=== PATIENT | male | born 1960 | race African-American/Black ===

== ENCOUNTER 2021-10-01 21:27 | Inpatient (IN) | payer MEDICARE, OTHER ==
[~2021-10-01] VITALS: Ht 177.8 cm; Wt 120.3 kg
[2021-10-01] MEDS ORDERED: IPRATROPIUM BROMIDE 0.5 MG/2.5 ML NEBU NEB ONE (21:45)
[2021-10-01] MEDS ORDERED: predniSONE 10 MG TABLET PO ONE (21:45)
[2021-10-01] MEDS ORDERED: ALBUTEROL SULFATE 2.5 MG/3 ML NEBU NEB ONE ×2 (21:45→23:00)
[2021-10-01] MEDS ORDERED: IPRATROPIUM BROMIDE 0.5 MG/2.5 ML NEBU ONE (22:01)
[2021-10-01] MEDS ORDERED: ALBUTEROL SULFATE 2.5 MG/3 ML NEBU ONE (22:01)
[2021-10-01 22:04] LABS: HEMATOCRIT 25.7 % (36.7-47.1); MEAN CORPUSCULAR HEMOGLOBIN 29.5 uug (23.8-33.4); MEAN CORPUSCULAR VOLUME 89.9 fL (73.0-96.2); PLATELET COUNT (AUTO) 134 K/uL (152-348)
[2021-10-01 22:12] LABS: CREATININE 1.7 mg/dL (0.6-1.3); POTASSIUM 4.4 mmol/L (3.5-5.1)
[2021-10-01] MEDS ORDERED: levoFLOXacin 750 MG/D5W 150 ML PIGGYBACK IV ONE (22:15)
[2021-10-01] MEDS ORDERED: NA P133E RC (22:23)
[2021-10-01] MEDS ORDERED: LORA-258 PO (22:23)
[2021-10-01] MEDS ORDERED: DEXT15DR6 OP (22:23)
[2021-10-01] MEDS ORDERED: ACET-2154 PO (22:23)
[2021-10-01] MEDS ORDERED: LIDO30AD10 TD (22:23)
[2021-10-01] MEDS ORDERED: TERA10CA4 PO (22:23)
[2021-10-01] MEDS ORDERED: DOCU-141 PO (22:23)
[2021-10-01] MEDS ORDERED: PROSTAT SF PO (22:23)
[2021-10-01] MEDS ORDERED: COLL30OI TOP (22:23)
[2021-10-01] MEDS ORDERED: MAGN400O6 PO (22:23)
[2021-10-01] MEDS ORDERED: CHOL100062 PO (22:23)
[2021-10-01] MEDS ORDERED: PANT40TA2 PO (22:23)
[2021-10-01] MEDS ORDERED: FLUT1BLS IH (22:23)
[2021-10-01] MEDS ORDERED: ZINC220T3 PO (22:23)
[2021-10-01] MEDS ORDERED: FURO-152 PO (22:23)
[2021-10-01] MEDS ORDERED: ALBU8HFA4 INH (22:23)
[2021-10-01] MEDS ORDERED: BACL20TA PO (22:23)
[2021-10-01] MEDS ORDERED: OXYC-128 PO (22:23)
[2021-10-01] MEDS ORDERED: ZINC50TA65 PO (22:23)
[2021-10-01] MEDS ORDERED: INSU100V28 (22:23)
[2021-10-01] MEDS ORDERED: BISA10SU61 RC (22:23)
[2021-10-01] MEDS ORDERED: ASCO-375 PO (22:23)
[2021-10-01] MEDS ORDERED: BRIM5DRO2 EACHEYE (22:23)
[2021-10-01] MEDS ORDERED: INSU100V7 SQ (22:23)
[2021-10-01] MEDS ORDERED: ZOLP5TAB8 PO (22:23)
[2021-10-01] MEDS ORDERED: HYDR-894 PO (22:23)
[2021-10-01] MEDS ORDERED: GABA600T12 PO (22:23)
[2021-10-01] MEDS ORDERED: HYDR-501 PO (22:23)
[2021-10-01] MEDS ORDERED: DILT120T2 PO (22:23)
[2021-10-01] MEDS ORDERED: MULT-213 PO (22:23)
[2021-10-01] MEDS ORDERED: FERR325T28 PO (22:23)
[2021-10-01 22:25] LABS: BILIRUBIN,DIRECT 0.1 mg/dL (0.0-0.2); BILIRUBIN,TOTAL 0.3 mg/dL (0.2-1.0); TOTAL PROTEIN, SERUM 7.8 g/dL (6.4-8.2)
[2021-10-01] MEDS ORDERED: predniSONE 10 MG TABLET ONE (22:33)
[2021-10-01] MEDS ORDERED: predniSONE 50 MG TABLET ONE (22:34)
[2021-10-01] MEDS ORDERED: ENOXAPARIN SODIUM 80 MG/0.8 ML DISP.SYRIN SQ ONE ×2 (22:45→23:23)
[2021-10-01] MEDS ORDERED: levoFLOXacin 750 MG TABLET PO ONE (23:00)
[2021-10-01] MEDS ORDERED: ONDANSETRON 4 MG/2 ML VIAL IV PRN (23:00)
[2021-10-01] MEDS ORDERED: BISACODYL 10 MG SUPP.RECT RC PRN (23:00)
[2021-10-01] MEDS ORDERED: Z GUARD REMEDY PASTE 57 GM TUBE TOP PRN (23:00)
[2021-10-01] MEDS ORDERED: MAGNESIUM HYDROXIDE 30 ML LIQUID UDC PO PRN ×2 (23:00)
[2021-10-01] MEDS ORDERED: IV NS 1000 ML 1,000 ML IV PRN (23:00)
[2021-10-01] MEDS ORDERED: BACLOFEN 20 MG TABLET PO PRN (23:00)
[2021-10-01] MEDS ORDERED: ACETAMINOPHEN 325 MG TABLET PO PRN (23:00)
[2021-10-01] MEDS ORDERED: levoFLOXacin 750 MG TABLET ONE (23:23)
[2021-10-02] MEDS ORDERED: RACEPINEPHRINE HCL 2.25% 0.5 ML NEBU NEB ONE (00:45)
[2021-10-02] MEDS ORDERED: RACEPINEPHRINE HCL 2.25% 0.5 ML NEBU ONE (00:48)
[2021-10-02] MEDS ORDERED: DEXTROSE 50% 50 ML DISP.SYRIN IV PRN (01:00)
[2021-10-02] MEDS ORDERED: ALBUTEROL SULFATE 2.5 MG/3 ML NEBU NEB PRN (03:30)
[2021-10-02] MEDS: ALBUTEROL SULFATE 2.5 MG/3 ML NEBU NEB SCH ×6 (03:57→22:58)
[2021-10-02] MEDS: IPRATROPIUM BROMIDE 0.5 MG/2.5 ML NEBU NEB SCH ×6 (03:57→22:59)
[2021-10-02 04:00] VITALS: BP 114/57
[2021-10-02] MEDS: OXYCODONE/APAP 5-325 MG TABLET PO PRN ×3 (04:13→23:32)
[2021-10-02] MEDS ORDERED: methylPREDNISolone SOD SUCC 125 MG/2 ML VIAL IV SCH (06:00)
[2021-10-02] MEDS: BLOOD SUGAR DIAGNOSTIC 1 EACH STRIP VI SCH ×4 (06:43→21:55)
[2021-10-02] MEDS ORDERED: DILT-2 PO (07:03)
[2021-10-02] MEDS ORDERED: PANTOPRAZOLE SODIUM 40 MG TABLET.DR PO SCH (07:30)
[2021-10-02] MEDS: INSULIN REGULAR, HUMAN 300 UNIT/3 ML VIAL SQ PRN ×4 (07:48→21:59)
[2021-10-02 08:08] LABS: HEMATOCRIT 26.3 % (36.7-47.1); MEAN CORPUSCULAR HEMOGLOBIN 29.6 uug (23.8-33.4); PLATELET COUNT (AUTO) 135 K/uL (152-348)
[2021-10-02] MEDS: PANTOPRAZOLE SODIUM 40 MG TABLET.DR PO SCH (08:43)
[2021-10-02] MEDS: ASCORBIC ACID 500 MG TABLET PO SCH ×2 (08:45→16:50)
[2021-10-02] MEDS: MULTIVITAMINS,THERAPEUTIC TABLET PO SCH (08:45)
[2021-10-02] MEDS: DILTIAZEM HCL CD 120 MG CAP.SR.24H PO SCH (08:45)
[2021-10-02] MEDS: DOCUSATE SODIUM 100 MG CAPSULE PO SCH (08:45)
[2021-10-02] MEDS: GABAPENTIN 300 MG CAPSULE PO SCH ×3 (08:46→16:50)
[2021-10-02] MEDS: LIDOCAINE 5% PATCH TD SCH (08:48)
[2021-10-02 08:51] LABS: CREATININE 1.6 mg/dL (0.6-1.3); MAGNESIUM 1.9 mg/dL (1.8-2.4); PHOSPHOROUS 4.2 mg/dL (2.5-4.9); POTASSIUM 4.7 mmol/L (3.5-5.1)
[2021-10-02] MEDS ORDERED: FLUTICASONE/VILANTEROL 1 EACH BLST.W.DEV IH SCH (09:00)
[2021-10-02] MEDS ORDERED: DILTIAZEM HCL 120 MG PO SCH (09:00)
[2021-10-02] MEDS: hydrALAZINE HCL 25 MG TABLET PO SCH ×3 (09:00→16:49)
[2021-10-02] MEDS: methylPREDNISolone SOD SUCC 40 MG/ML VIAL IV SCH ×3 (09:01→23:13)
[2021-10-02] MEDS: FLUTICASONE/VILANTEROL 1 EACH BLST.W.DEV IH SCH (09:04)
[2021-10-02] MEDS: ENOXAPARIN SODIUM 40 MG/0.4 ML DISP.SYRIN SQ SCH ×2 (11:15→20:08)
[2021-10-02 12:00] VITALS: BP 140/81
[2021-10-02 12:44] LABS: ABG BASE EXCESS 0.3 mmol/L; ABG HCO3 27.6 mmol/L; ABG PCO2 58.9 mmHg (35.0-45.0); ABG PH 7.288 (7.350-7.450); ABG PO2 133.7 mmHg (75.0-100.0); ABG SITE RIGHT RADIAL; ABG TOTAL HEMOGLOBIN 9.4 G/dL (13.5-18.0); O2Hb 98.9 % (94.0-97.0)
[2021-10-02] MEDS ORDERED: MISCELLANEOUS MED XX PRN (14:30)
[2021-10-02] MEDS: LORAZEPAM 0.5 MG TABLET PO PRN ×2 (15:11→20:19)
[2021-10-02 16:00] VITALS: BP 117/72
[2021-10-02] MEDS: TIMOLOL MALEATE 0.5% OPHT DROP 5 ML BOTTLE EACHEYE SCH (20:07)
[2021-10-02] MEDS: BRIMONIDINE 0.2% OPHT DROP 10 ML BOTTLE EACHEYE SCH (20:07)
[2021-10-02 20:09] VITALS: BP 149/90
[2021-10-02] MEDS: levoFLOXacin 750MG/D5W 750 MG in PREMIXED 1 EACH IV SCH (20:09)
[2021-10-02] MEDS: FERROUS SULFATE 325 MG TABEC PO SCH (20:09)
[2021-10-02] MEDS: TERAZOSIN 5 MG CAPSULE PO SCH (20:11)
[2021-10-03] MEDS: ALBUTEROL SULFATE 2.5 MG/3 ML NEBU NEB SCH ×6 (02:59→23:06)
[2021-10-03] MEDS: IPRATROPIUM BROMIDE 0.5 MG/2.5 ML NEBU NEB SCH ×6 (02:59→23:06)
[2021-10-03 04:00] VITALS: BP 132/59
[2021-10-03 05:00] VITALS: BP 129/73
[2021-10-03] MEDS: methylPREDNISolone SOD SUCC 40 MG/ML VIAL IV SCH ×3 (05:12→21:48)
[2021-10-03] MEDS: BLOOD SUGAR DIAGNOSTIC 1 EACH STRIP VI SCH ×4 (06:10→21:46)
[2021-10-03] MEDS: PANTOPRAZOLE SODIUM 40 MG TABLET.DR PO SCH (06:37)
[2021-10-03 07:58] LABS: HEMATOCRIT 25.2 % (36.7-47.1); MEAN CORPUSCULAR HEMOGLOBIN 29.4 uug (23.8-33.4); MEAN CORPUSCULAR VOLUME 90.4 fL (73.0-96.2); PLATELET COUNT (AUTO) 137 K/uL (152-348)
[2021-10-03 08:37] LABS: CREATININE 1.4 mg/dL (0.6-1.3)
[2021-10-03] MEDS: MULTIVITAMINS,THERAPEUTIC TABLET PO SCH (08:42)
[2021-10-03] MEDS: FLUTICASONE/VILANTEROL 1 EACH BLST.W.DEV IH SCH (08:42)
[2021-10-03] MEDS: LORAZEPAM 0.5 MG TABLET PO PRN ×3 (08:42→21:49)
[2021-10-03] MEDS: OXYCODONE/APAP 5-325 MG TABLET PO PRN ×2 (08:43→17:48)
[2021-10-03] MEDS: DOCUSATE SODIUM 100 MG CAPSULE PO SCH (08:45)
[2021-10-03] MEDS: hydrALAZINE HCL 25 MG TABLET PO SCH ×3 (08:45→17:07)
[2021-10-03] MEDS: DILTIAZEM HCL CD 120 MG CAP.SR.24H PO SCH (08:45)
[2021-10-03] MEDS: FERROUS SULFATE 325 MG TABEC PO SCH ×2 (08:46→21:19)
[2021-10-03] MEDS: ASCORBIC ACID 500 MG TABLET PO SCH ×2 (08:46→17:07)
[2021-10-03] MEDS: GABAPENTIN 300 MG CAPSULE PO SCH ×3 (08:46→17:07)
[2021-10-03] MEDS: ENOXAPARIN SODIUM 40 MG/0.4 ML DISP.SYRIN SQ SCH ×2 (08:47→21:48)
[2021-10-03] MEDS: LIDOCAINE 5% PATCH TD SCH (08:47)
[2021-10-03] MEDS: BRIMONIDINE 0.2% OPHT DROP 10 ML BOTTLE EACHEYE SCH ×2 (08:53→21:18)
[2021-10-03] MEDS: TIMOLOL MALEATE 0.5% OPHT DROP 5 ML BOTTLE EACHEYE SCH ×2 (08:53→21:18)
[2021-10-03] MEDS ORDERED: LORAZEPAM 2 MG/1 ML VIAL IV ONE ×3 (09:00→13:05)
[2021-10-03 11:22] VITALS: BP 117/67
[2021-10-03] MEDS: ACETAMINOPHEN 325 MG TABLET PO PRN ×2 (11:30→21:20)
[2021-10-03] MEDS: INSULIN REGULAR, HUMAN 300 UNIT/3 ML VIAL SQ PRN ×2 (11:43→17:09)
[2021-10-03] MEDS ORDERED: LORAZEPAM 2 MG/1 ML VIAL IV PRN (13:00)
[2021-10-03] MEDS: busPIRone 5 MG TABLET PO SCH ×2 (15:38→17:07)
[2021-10-03 15:52] VITALS: BP 132/62
[2021-10-03] MEDS: TERAZOSIN 5 MG CAPSULE PO SCH (21:19)
[2021-10-03] MEDS: levoFLOXacin 750MG/D5W 750 MG in PREMIXED 1 EACH IV SCH (21:21)
[2021-10-03] MEDS: INSULIN REGULAR, HUMAN 300 UNITS/3 ML VIAL SQ PRN (21:28)
[2021-10-03 22:23] VITALS: BP 137/74
[2021-10-04] MEDS: LORAZEPAM 0.5 MG TABLET PO PRN ×4 (02:27→18:51)
[2021-10-04 02:46] LABS: *BILIRUBIN,URIN NEGATIVE (NEGATIVE); *BLOOD, URINE NEGATIVE (NEGATIVE); *CLARITY,URINE CLEAR (CLEAR); *COLOR,URINE YELLOW (YELLOW); *KETONES,URINE NEGATIVE (NEGATIVE); *UROBILINOGEN,URINE 0.2 E.U./dl (NORMAL); LEUKOCYTE ESTERASE ,URINE NEGATIVE (NEGATIVE); NITRITE, URINE NEGATIVE (NEGATIVE); PH,URINE 5.5 (5.0-8.0); UGLUCOSE TRACE (NEGATIVE)
[2021-10-04] MEDS: IPRATROPIUM BROMIDE 0.5 MG/2.5 ML NEBU NEB SCH ×6 (04:04→22:30)
[2021-10-04] MEDS: ALBUTEROL SULFATE 2.5 MG/3 ML NEBU NEB SCH ×6 (04:04→22:30)
[2021-10-04] MEDS: methylPREDNISolone SOD SUCC 40 MG/ML VIAL IV SCH ×3 (05:51→22:00)
[2021-10-04] MEDS: OXYCODONE/APAP 5-325 MG TABLET PO PRN (06:28)
[2021-10-04] MEDS: PANTOPRAZOLE SODIUM 40 MG TABLET.DR PO SCH (06:34)
[2021-10-04] MEDS: BLOOD SUGAR DIAGNOSTIC 1 EACH STRIP VI SCH ×5 (06:34→21:00)
[2021-10-04 06:36] VITALS: BP 125/67
[2021-10-04 06:44] LABS: HEMATOCRIT 26.1 % (36.7-47.1); MEAN CORPUSCULAR HEMOGLOBIN 29.5 uug (23.8-33.4); MEAN CORPUSCULAR VOLUME 89.9 fL (73.0-96.2); PLATELET COUNT (AUTO) 169 K/uL (152-348)
[2021-10-04 07:07] LABS: CREATININE 1.5 mg/dL (0.6-1.3); POTASSIUM 4.6 mmol/L (3.5-5.1)
[2021-10-04] MEDS: INSULIN REGULAR, HUMAN 300 UNIT/3 ML VIAL SQ PRN ×3 (08:05→17:10)
[2021-10-04] MEDS: LIDOCAINE 5% PATCH TD SCH (10:06)
[2021-10-04] MEDS: ENOXAPARIN SODIUM 40 MG/0.4 ML DISP.SYRIN SQ SCH ×2 (10:06→21:30)
[2021-10-04] MEDS: FERROUS SULFATE 325 MG TABEC PO SCH ×2 (10:07→21:56)
[2021-10-04] MEDS: ASCORBIC ACID 500 MG TABLET PO SCH ×2 (10:07→17:11)
[2021-10-04] MEDS: hydrALAZINE HCL 25 MG TABLET PO SCH ×3 (10:07→17:11)
[2021-10-04] MEDS: DILTIAZEM HCL CD 120 MG CAP.SR.24H PO SCH (10:07)
[2021-10-04] MEDS: busPIRone 5 MG TABLET PO SCH (10:08)
[2021-10-04] MEDS: DOCUSATE SODIUM 100 MG CAPSULE PO SCH (10:08)
[2021-10-04] MEDS: GABAPENTIN 300 MG CAPSULE PO SCH ×3 (10:08→17:11)
[2021-10-04] MEDS: MULTIVITAMINS,THERAPEUTIC TABLET PO SCH (10:08)
[2021-10-04] MEDS: FLUTICASONE/VILANTEROL 1 EACH BLST.W.DEV IH SCH (10:09)
[2021-10-04] MEDS: TIMOLOL MALEATE 0.5% OPHT DROP 5 ML BOTTLE EACHEYE SCH ×2 (10:12→21:11)
[2021-10-04] MEDS: BRIMONIDINE 0.2% OPHT DROP 10 ML BOTTLE EACHEYE SCH ×2 (10:13→21:10)
[2021-10-04 10:40] LABS: *CREATININE,URINE 76.7 mg/dL (30-125); *URINE TOTAL PROTEIN RANDOM 27.3 mg/dL (<150/24HR)
[2021-10-04] MEDS ORDERED: FUROSEMIDE 20 MG/2 ML VIAL IV ONE ×2 (12:00→19:00)
[2021-10-04] MEDS: SODIUM HYPOCHLORITE 0.125% (QUARTER STRENGTH) 473 ML BOTTLE TP SCH ×2 (13:59→14:00)
[2021-10-04 16:00] VITALS: BP 148/82
[2021-10-04 20:42] VITALS: BP 127/78
[2021-10-04] MEDS: levoFLOXacin 750MG/D5W 750 MG in PREMIXED 1 EACH IV SCH (21:11)
[2021-10-04] MEDS: MELATONIN 3 MG TABLET PO SCH (21:26)
[2021-10-04] MEDS: TERAZOSIN 5 MG CAPSULE PO SCH (21:30)
[2021-10-05] MEDS: ALBUTEROL SULFATE 2.5 MG/3 ML NEBU NEB SCH ×6 (02:31→23:57)
[2021-10-05] MEDS: IPRATROPIUM BROMIDE 0.5 MG/2.5 ML NEBU NEB SCH ×6 (02:31→23:57)
[2021-10-05 04:43] VITALS: BP 131/67
[2021-10-05] MEDS: methylPREDNISolone SOD SUCC 40 MG/ML VIAL IV SCH ×3 (06:07→22:18)
[2021-10-05 07:20] LABS: HEMATOCRIT 26.7 % (36.7-47.1); MEAN CORPUSCULAR HEMOGLOBIN 29.6 uug (23.8-33.4); MEAN CORPUSCULAR VOLUME 89.6 fL (73.0-96.2); PLATELET COUNT (AUTO) 180 K/uL (152-348)
[2021-10-05 07:32] LABS: CREATININE 1.6 mg/dL (0.6-1.3); MAGNESIUM 1.9 mg/dL (1.8-2.4); PHOSPHOROUS 3.4 mg/dL (2.5-4.9); POTASSIUM 4.3 mmol/L (3.5-5.1)
[2021-10-05] MEDS: INSULIN REGULAR, HUMAN 300 UNIT/3 ML VIAL SQ PRN ×4 (09:04→22:03)
[2021-10-05] MEDS: BLOOD SUGAR DIAGNOSTIC 1 EACH STRIP VI SCH ×4 (09:05→21:47)
[2021-10-05] MEDS: FERROUS SULFATE 325 MG TABEC PO SCH ×2 (09:07→21:44)
[2021-10-05] MEDS: DOCUSATE SODIUM 100 MG CAPSULE PO SCH (09:07)
[2021-10-05] MEDS: MULTIVITAMINS,THERAPEUTIC TABLET PO SCH (09:07)
[2021-10-05] MEDS: FUROSEMIDE 20 MG/2 ML VIAL IV SCH ×2 (09:07→21:43)
[2021-10-05] MEDS: PANTOPRAZOLE SODIUM 40 MG TABLET.DR PO SCH (09:07)
[2021-10-05] MEDS: BRIMONIDINE 0.2% OPHT DROP 10 ML BOTTLE EACHEYE SCH ×2 (09:07→21:44)
[2021-10-05] MEDS: GABAPENTIN 300 MG CAPSULE PO SCH ×3 (09:08→17:29)
[2021-10-05] MEDS: ASCORBIC ACID 500 MG TABLET PO SCH ×2 (09:08→17:29)
[2021-10-05] MEDS: LORAZEPAM 0.5 MG TABLET PO PRN ×2 (09:09→15:57)
[2021-10-05] MEDS: ENOXAPARIN SODIUM 40 MG/0.4 ML DISP.SYRIN SQ SCH ×2 (09:19→21:46)
[2021-10-05] MEDS: LIDOCAINE 5% PATCH TD SCH (09:21)
[2021-10-05] MEDS: DILTIAZEM HCL CD 120 MG CAP.SR.24H PO SCH (09:22)
[2021-10-05] MEDS: hydrALAZINE HCL 25 MG TABLET PO SCH ×3 (09:22→17:32)
[2021-10-05] MEDS: TIMOLOL MALEATE 0.5% OPHT DROP 5 ML BOTTLE EACHEYE SCH ×2 (09:23→21:44)
[2021-10-05] MEDS: FLUTICASONE/VILANTEROL 1 EACH BLST.W.DEV IH SCH (09:23)
[2021-10-05] MEDS: SODIUM HYPOCHLORITE 0.125% (QUARTER STRENGTH) 473 ML BOTTLE TP SCH ×2 (11:28)
[2021-10-05 12:00] VITALS: BP 146/87
[2021-10-05 12:50] LABS: ABG BASE EXCESS 1.4 mmol/L; ABG HCO3 25.7 mmol/L; ABG PCO2 39.5 mmHg (35.0-45.0); ABG PH 7.431 (7.350-7.450); ABG PO2 93.9 mmHg (75.0-100.0); ABG SITE LEFT RADIAL; COHb 0.3 % (0.5-1.5); O2Hb 97.2 % (94.0-97.0)
[2021-10-05] MEDS: OXYCODONE/APAP 5-325 MG TABLET PO PRN (13:33)
[2021-10-05] MEDS: BACLOFEN 20 MG TABLET PO PRN (15:57)
[2021-10-05 16:00] VITALS: BP 117/60
[2021-10-05 20:20] VITALS: BP 149/84
[2021-10-05] MEDS: TERAZOSIN 5 MG CAPSULE PO SCH (21:45)
[2021-10-05] MEDS: MELATONIN 3 MG TABLET PO SCH (21:45)
[2021-10-05] MEDS: levoFLOXacin 750MG/D5W 750 MG in PREMIXED 1 EACH IV SCH (22:03)
[2021-10-06 04:10] VITALS: BP 136/66
[2021-10-06] MEDS: IPRATROPIUM BROMIDE 0.5 MG/2.5 ML NEBU NEB SCH ×6 (04:19→22:30)
[2021-10-06] MEDS: ALBUTEROL SULFATE 2.5 MG/3 ML NEBU NEB SCH ×6 (04:22→22:30)
[2021-10-06] MEDS: methylPREDNISolone SOD SUCC 40 MG/ML VIAL IV SCH ×2 (05:51→21:07)
[2021-10-06] MEDS: LORAZEPAM 0.5 MG TABLET PO PRN ×3 (06:26→15:06)
[2021-10-06] MEDS: BLOOD SUGAR DIAGNOSTIC 1 EACH STRIP VI SCH ×4 (06:48→21:32)
[2021-10-06] MEDS: PANTOPRAZOLE SODIUM 40 MG TABLET.DR PO SCH ×2 (06:53→07:30)
[2021-10-06 06:57] LABS: HEMATOCRIT 28.2 % (36.7-47.1); MEAN CORPUSCULAR HEMOGLOBIN 29.4 uug (23.8-33.4); PLATELET COUNT (AUTO) 186 K/uL (152-348)
[2021-10-06 07:11] LABS: CREATININE 1.5 mg/dL (0.6-1.3); MAGNESIUM 1.9 mg/dL (1.8-2.4); POTASSIUM 3.7 mmol/L (3.5-5.1)
[2021-10-06] MEDS: DILTIAZEM HCL CD 120 MG CAP.SR.24H PO SCH (09:00)
[2021-10-06] MEDS: hydrALAZINE HCL 25 MG TABLET PO SCH ×3 (09:00→16:08)
[2021-10-06] MEDS: INSULIN REGULAR, HUMAN 300 UNIT/3 ML VIAL SQ PRN ×4 (09:12→21:36)
[2021-10-06] MEDS: GABAPENTIN 300 MG CAPSULE PO SCH ×3 (09:13→16:08)
[2021-10-06] MEDS: DOCUSATE SODIUM 100 MG CAPSULE PO SCH (09:13)
[2021-10-06] MEDS: LIDOCAINE 5% PATCH TD SCH (09:13)
[2021-10-06] MEDS: TIMOLOL MALEATE 0.5% OPHT DROP 5 ML BOTTLE EACHEYE SCH ×2 (09:15→21:09)
[2021-10-06] MEDS: FLUTICASONE/VILANTEROL 1 EACH BLST.W.DEV IH SCH (09:15)
[2021-10-06] MEDS: FUROSEMIDE 20 MG/2 ML VIAL IV SCH ×2 (09:15→21:07)
[2021-10-06] MEDS: OXYCODONE/APAP 5-325 MG TABLET PO PRN ×2 (09:15→18:41)
[2021-10-06] MEDS: BRIMONIDINE 0.2% OPHT DROP 10 ML BOTTLE EACHEYE SCH ×2 (09:16→21:09)
[2021-10-06] MEDS: FERROUS SULFATE 325 MG TABEC PO SCH ×2 (09:23→21:08)
[2021-10-06] MEDS: MULTIVITAMINS,THERAPEUTIC TABLET PO SCH (09:26)
[2021-10-06] MEDS: ASCORBIC ACID 500 MG TABLET PO SCH ×2 (09:26→16:09)
[2021-10-06] MEDS: SODIUM HYPOCHLORITE 0.125% (QUARTER STRENGTH) 473 ML BOTTLE TP SCH (09:26)
[2021-10-06] MEDS: ENOXAPARIN SODIUM 40 MG/0.4 ML DISP.SYRIN SQ SCH ×2 (09:30→21:07)
[2021-10-06 11:56] VITALS: BP 144/77
[2021-10-06] MEDS: BACLOFEN 20 MG TABLET PO PRN (12:28)
[2021-10-06] MEDS: ACETAMINOPHEN 325 MG TABLET PO PRN (15:52)
[2021-10-06 16:00] VITALS: BP 138/63
[2021-10-06 20:05] VITALS: BP 116/48
[2021-10-06] MEDS: TERAZOSIN 5 MG CAPSULE PO SCH (21:08)
[2021-10-06] MEDS: levoFLOXacin 750 MG TABLET PO SCH (21:09)
[2021-10-06] MEDS: MELATONIN 3 MG TABLET PO SCH (21:09)
[2021-10-07] MEDS: IPRATROPIUM BROMIDE 0.5 MG/2.5 ML NEBU NEB SCH ×6 (01:53→23:10)
[2021-10-07] MEDS: ALBUTEROL SULFATE 2.5 MG/3 ML NEBU NEB SCH ×6 (01:53→23:10)
[2021-10-07 04:10] VITALS: BP 115/73
[2021-10-07] MEDS: PANTOPRAZOLE SODIUM 40 MG TABLET.DR PO SCH (06:31)
[2021-10-07] MEDS: BLOOD SUGAR DIAGNOSTIC 1 EACH STRIP VI SCH ×4 (06:33→20:32)
[2021-10-07] MEDS: BACLOFEN 20 MG TABLET PO PRN (06:37)
[2021-10-07] MEDS: LORAZEPAM 0.5 MG TABLET PO PRN ×4 (06:37→19:55)
[2021-10-07 07:19] LABS: HEMATOCRIT 30.2 % (36.7-47.1); MEAN CORPUSCULAR HEMOGLOBIN 29.7 uug (23.8-33.4); MEAN CORPUSCULAR VOLUME 89.2 fL (73.0-96.2); PLATELET COUNT (AUTO) 186 K/uL (152-348)
[2021-10-07 07:27] LABS: CREATININE 1.4 mg/dL (0.6-1.3); MAGNESIUM 1.7 mg/dL (1.8-2.4); PHOSPHOROUS 3.1 mg/dL (2.5-4.9); POTASSIUM 3.6 mmol/L (3.5-5.1)
[2021-10-07] MEDS: INSULIN REGULAR, HUMAN 300 UNIT/3 ML VIAL SQ PRN ×3 (08:25→16:25)
[2021-10-07] MEDS: ASCORBIC ACID 500 MG TABLET PO SCH ×2 (08:32→16:31)
[2021-10-07] MEDS: MULTIVITAMINS,THERAPEUTIC TABLET PO SCH (08:32)
[2021-10-07] MEDS: ENOXAPARIN SODIUM 40 MG/0.4 ML DISP.SYRIN SQ SCH ×2 (08:33→20:26)
[2021-10-07] MEDS: DILTIAZEM HCL CD 120 MG CAP.SR.24H PO SCH (08:34)
[2021-10-07] MEDS: DOCUSATE SODIUM 100 MG CAPSULE PO SCH (08:35)
[2021-10-07] MEDS: hydrALAZINE HCL 25 MG TABLET PO SCH ×3 (08:36→16:32)
[2021-10-07] MEDS: FERROUS SULFATE 325 MG TABEC PO SCH ×2 (08:36→20:22)
[2021-10-07] MEDS: GABAPENTIN 300 MG CAPSULE PO SCH ×3 (08:36→16:31)
[2021-10-07] MEDS: FUROSEMIDE 20 MG/2 ML VIAL IV SCH ×2 (08:37→20:24)
[2021-10-07] MEDS: methylPREDNISolone SOD SUCC 40 MG/ML VIAL IV SCH ×2 (08:38→20:23)
[2021-10-07] MEDS: FLUTICASONE/VILANTEROL 1 EACH BLST.W.DEV IH SCH (08:40)
[2021-10-07] MEDS: LIDOCAINE 5% PATCH TD SCH (08:40)
[2021-10-07] MEDS: BRIMONIDINE 0.2% OPHT DROP 10 ML BOTTLE EACHEYE SCH ×2 (08:40→20:24)
[2021-10-07] MEDS: SODIUM HYPOCHLORITE 0.125% (QUARTER STRENGTH) 473 ML BOTTLE TP SCH (08:41)
[2021-10-07] MEDS: TIMOLOL MALEATE 0.5% OPHT DROP 5 ML BOTTLE EACHEYE SCH ×2 (08:41→20:24)
[2021-10-07] MEDS ORDERED: MAGNESIUM OXIDE 400 MG TABLET PO ONE (10:00)
[2021-10-07] MEDS: OXYCODONE/APAP 5-325 MG TABLET PO PRN ×2 (10:37→21:19)
[2021-10-07 11:30] VITALS: BP 148/75
[2021-10-07] MEDS: ACETAMINOPHEN 325 MG TABLET PO PRN (15:04)
[2021-10-07 15:09] VITALS: BP 152/73
[2021-10-07] MEDS: ARGININE/GLUTAMINE/CALCIUM BMB 1 EACH POWD.PACK PO SCH (16:33)
[2021-10-07 20:15] VITALS: BP 154/96
[2021-10-07] MEDS: levoFLOXacin 750 MG TABLET PO SCH (20:22)
[2021-10-07] MEDS: TERAZOSIN 5 MG CAPSULE PO SCH (20:22)
[2021-10-07] MEDS: MELATONIN 3 MG TABLET PO SCH (20:23)
[2021-10-07] MEDS: INSULIN REGULAR, HUMAN 300 UNITS/3 ML VIAL SQ PRN (20:36)
[2021-10-08] MEDS: IPRATROPIUM BROMIDE 0.5 MG/2.5 ML NEBU NEB SCH ×4 (02:30→20:33)
[2021-10-08] MEDS: ALBUTEROL SULFATE 2.5 MG/3 ML NEBU NEB SCH ×5 (02:30→20:33)
[2021-10-08] MEDS: LORAZEPAM 0.5 MG TABLET PO PRN ×3 (03:10→16:25)
[2021-10-08 04:15] VITALS: BP 143/81
[2021-10-08] MEDS: OXYCODONE/APAP 5-325 MG TABLET PO PRN (06:20)
[2021-10-08 06:44] LABS: MEAN CORPUSCULAR HEMOGLOBIN 29.4 uug (23.8-33.4); MEAN CORPUSCULAR VOLUME 88.5 fL (73.0-96.2); PLATELET COUNT (AUTO) 173 K/uL (152-348)
[2021-10-08 06:58] LABS: CREATININE 1.4 mg/dL (0.6-1.3); MAGNESIUM 1.7 mg/dL (1.8-2.4); POTASSIUM 3.4 mmol/L (3.5-5.1)
[2021-10-08] MEDS: BLOOD SUGAR DIAGNOSTIC 1 EACH STRIP VI SCH ×4 (07:04→20:19)
[2021-10-08] MEDS: PANTOPRAZOLE SODIUM 40 MG TABLET.DR PO SCH (07:04)
[2021-10-08] MEDS ORDERED: POTASSIUM CHLORIDE 20 MEQ POWDER PACKET PO ONE (07:45)
[2021-10-08] MEDS ORDERED: POTASSIUM CHLORIDE 20 MEQ TAB.PRT.SR PO ONE (08:00)
[2021-10-08] MEDS: ARGININE/GLUTAMINE/CALCIUM BMB 1 EACH POWD.PACK PO SCH ×2 (09:00→16:33)
[2021-10-08] MEDS: INSULIN REGULAR, HUMAN 300 UNIT/3 ML VIAL SQ PRN ×3 (10:15→16:31)
[2021-10-08] MEDS: ENOXAPARIN SODIUM 40 MG/0.4 ML DISP.SYRIN SQ SCH ×2 (10:16→20:26)
[2021-10-08] MEDS: FLUTICASONE/VILANTEROL 1 EACH BLST.W.DEV IH SCH (10:17)
[2021-10-08] MEDS: BRIMONIDINE 0.2% OPHT DROP 10 ML BOTTLE EACHEYE SCH ×2 (10:18→20:29)
[2021-10-08] MEDS: methylPREDNISolone SOD SUCC 40 MG/ML VIAL IV SCH ×2 (10:18→21:34)
[2021-10-08] MEDS: TIMOLOL MALEATE 0.5% OPHT DROP 5 ML BOTTLE EACHEYE SCH ×2 (10:18→20:29)
[2021-10-08] MEDS: MULTIVITAMINS,THERAPEUTIC TABLET PO SCH (10:20)
[2021-10-08] MEDS: hydrALAZINE HCL 25 MG TABLET PO SCH ×3 (10:20→16:26)
[2021-10-08] MEDS: FERROUS SULFATE 325 MG TABEC PO SCH ×2 (10:21→20:26)
[2021-10-08] MEDS: DILTIAZEM HCL CD 120 MG CAP.SR.24H PO SCH (10:21)
[2021-10-08] MEDS: ASCORBIC ACID 500 MG TABLET PO SCH ×2 (10:21→16:25)
[2021-10-08] MEDS: GABAPENTIN 300 MG CAPSULE PO SCH ×3 (10:21→16:25)
[2021-10-08] MEDS: DOCUSATE SODIUM 100 MG CAPSULE PO SCH (10:21)
[2021-10-08] MEDS: FUROSEMIDE 20 MG/2 ML VIAL IV SCH ×2 (10:22→21:34)
[2021-10-08] MEDS: SODIUM HYPOCHLORITE 0.125% (QUARTER STRENGTH) 473 ML BOTTLE TP SCH (10:23)
[2021-10-08] MEDS: LIDOCAINE 5% PATCH TD SCH (10:23)
[2021-10-08] MEDS: MAGNESIUM SULFATE/D5W 100 ML IV SCH ×2 (10:27→11:10)
[2021-10-08] MEDS: diphenhydrAMINE 25 MG CAP PO PRN (12:14)
[2021-10-08 15:18] VITALS: BP 123/71
[2021-10-08 20:15] VITALS: BP 149/84
[2021-10-08] MEDS ORDERED: LORAZEPAM 2 MG/1 ML VIAL IV ONE (20:15)
[2021-10-08] MEDS: levoFLOXacin 750 MG TABLET PO SCH (20:27)
[2021-10-08] MEDS: TERAZOSIN 5 MG CAPSULE PO SCH (20:27)
[2021-10-08] MEDS: MELATONIN 3 MG TABLET PO SCH (20:27)
[2021-10-08] MEDS: INSULIN REGULAR, HUMAN 300 UNITS/3 ML VIAL SQ PRN (20:28)
[2021-10-09] MEDS: ALBUTEROL SULFATE 2.5 MG/3 ML NEBU NEB SCH ×6 (00:14→20:25)
[2021-10-09] MEDS: IPRATROPIUM BROMIDE 0.5 MG/2.5 ML NEBU NEB SCH ×6 (00:14→20:24)
[2021-10-09] MEDS: LORAZEPAM 0.5 MG TABLET PO PRN ×5 (00:30→23:13)
[2021-10-09] MEDS: OXYCODONE/APAP 5-325 MG TABLET PO PRN ×3 (02:46→19:21)
[2021-10-09 04:15] VITALS: BP 154/91
[2021-10-09] MEDS: ACETAMINOPHEN 325 MG TABLET PO PRN ×2 (04:36→23:13)
[2021-10-09] MEDS: PANTOPRAZOLE SODIUM 40 MG TABLET.DR PO SCH (06:26)
[2021-10-09] MEDS: BLOOD SUGAR DIAGNOSTIC 1 EACH STRIP VI SCH ×4 (06:46→20:17)
[2021-10-09 08:00] VITALS: BP 154/74
[2021-10-09] MEDS: ARGININE/GLUTAMINE/CALCIUM BMB 1 EACH POWD.PACK PO SCH ×2 (09:00→17:00)
[2021-10-09] MEDS: SODIUM HYPOCHLORITE 0.125% (QUARTER STRENGTH) 473 ML BOTTLE TP SCH (09:00)
[2021-10-09 09:57] LABS: HEMATOCRIT 30.2 % (36.7-47.1); MEAN CORPUSCULAR HEMOGLOBIN 29.2 uug (23.8-33.4); MEAN CORPUSCULAR VOLUME 88.9 fL (73.0-96.2); PLATELET COUNT (AUTO) 142 K/uL (152-348)
[2021-10-09 10:06] LABS: CREATININE 1.5 mg/dL (0.6-1.3); MAGNESIUM 1.9 mg/dL (1.8-2.4); POTASSIUM 3.8 mmol/L (3.5-5.1)
[2021-10-09] MEDS: FLUTICASONE/VILANTEROL 1 EACH BLST.W.DEV IH SCH (10:33)
[2021-10-09] MEDS: TIMOLOL MALEATE 0.5% OPHT DROP 5 ML BOTTLE EACHEYE SCH ×2 (10:34→20:55)
[2021-10-09] MEDS: methylPREDNISolone SOD SUCC 40 MG/ML VIAL IV SCH ×2 (10:34→20:18)
[2021-10-09] MEDS: BRIMONIDINE 0.2% OPHT DROP 10 ML BOTTLE EACHEYE SCH ×2 (10:34→20:47)
[2021-10-09] MEDS: MULTIVITAMINS,THERAPEUTIC TABLET PO SCH (10:36)
[2021-10-09] MEDS: GABAPENTIN 300 MG CAPSULE PO SCH ×3 (10:36→18:40)
[2021-10-09] MEDS: DOCUSATE SODIUM 100 MG CAPSULE PO SCH (10:36)
[2021-10-09] MEDS: FERROUS SULFATE 325 MG TABEC PO SCH ×2 (10:37→20:20)
[2021-10-09] MEDS: ASCORBIC ACID 500 MG TABLET PO SCH ×2 (10:37→18:40)
[2021-10-09] MEDS: hydrALAZINE HCL 25 MG TABLET PO SCH ×3 (10:39→18:40)
[2021-10-09] MEDS: DILTIAZEM HCL CD 120 MG CAP.SR.24H PO SCH (10:39)
[2021-10-09] MEDS: FUROSEMIDE 20 MG/2 ML VIAL IV SCH (10:39)
[2021-10-09] MEDS: LIDOCAINE 5% PATCH TD SCH (10:41)
[2021-10-09] MEDS: ENOXAPARIN SODIUM 40 MG/0.4 ML DISP.SYRIN SQ SCH ×2 (10:44→20:28)
[2021-10-09] MEDS: INSULIN REGULAR, HUMAN 300 UNIT/3 ML VIAL SQ PRN ×2 (11:46→18:37)
[2021-10-09] MEDS ORDERED: MIRALAX 17 GM POWD.PACK PO ONE (15:45)
[2021-10-09 16:34] VITALS: BP 139/70
[2021-10-09] MEDS: FUROSEMIDE 40 MG TABLET PO SCH (20:18)
[2021-10-09] MEDS: TERAZOSIN 5 MG CAPSULE PO SCH (20:19)
[2021-10-09] MEDS: levoFLOXacin 750 MG TABLET PO SCH (20:20)
[2021-10-09] MEDS: MELATONIN 3 MG TABLET PO SCH (20:20)
[2021-10-09] MEDS: INSULIN REGULAR, HUMAN 300 UNITS/3 ML VIAL SQ PRN (20:26)
[2021-10-09 20:30] VITALS: BP 150/80
[2021-10-09] MEDS ORDERED: INSULIN GLARGINE,HUM 300 UNITS/3 ML CARTRIDGE SQ SCH (21:00)
[2021-10-10] MEDS: ALBUTEROL SULFATE 2.5 MG/3 ML NEBU NEB SCH ×7 (00:02→23:16)
[2021-10-10] MEDS: IPRATROPIUM BROMIDE 0.5 MG/2.5 ML NEBU NEB SCH ×7 (00:02→23:16)
[2021-10-10] MEDS: diphenhydrAMINE 25 MG CAP PO PRN ×2 (02:34→22:41)
[2021-10-10] MEDS: LORAZEPAM 0.5 MG TABLET PO PRN ×3 (03:37→21:21)
[2021-10-10 04:00] VITALS: BP 135/76
[2021-10-10] MEDS: OXYCODONE/APAP 5-325 MG TABLET PO PRN ×3 (05:22→16:46)
[2021-10-10 06:21] LABS: HEMATOCRIT 29.3 % (36.7-47.1); MEAN CORPUSCULAR HEMOGLOBIN 29.3 uug (23.8-33.4); MEAN CORPUSCULAR VOLUME 88.6 fL (73.0-96.2); PLATELET COUNT (AUTO) 172 K/uL (152-348)
[2021-10-10] MEDS: PANTOPRAZOLE SODIUM 40 MG TABLET.DR PO SCH (06:31)
[2021-10-10] MEDS: BLOOD SUGAR DIAGNOSTIC 1 EACH STRIP VI SCH ×4 (06:40→21:21)
[2021-10-10 06:42] LABS: CREATININE 1.4 mg/dL (0.6-1.3); MAGNESIUM 1.8 mg/dL (1.8-2.4); POTASSIUM 3.5 mmol/L (3.5-5.1)
[2021-10-10] MEDS: BRIMONIDINE 0.2% OPHT DROP 10 ML BOTTLE EACHEYE SCH ×2 (09:27→20:59)
[2021-10-10] MEDS: TIMOLOL MALEATE 0.5% OPHT DROP 5 ML BOTTLE EACHEYE SCH ×2 (09:27→20:59)
[2021-10-10] MEDS: DILTIAZEM HCL CD 120 MG CAP.SR.24H PO SCH (09:28)
[2021-10-10] MEDS: FUROSEMIDE 40 MG TABLET PO SCH (09:28)
[2021-10-10] MEDS: FLUTICASONE/VILANTEROL 1 EACH BLST.W.DEV IH SCH (09:28)
[2021-10-10] MEDS: FERROUS SULFATE 325 MG TABEC PO SCH ×2 (09:29→21:00)
[2021-10-10] MEDS: MULTIVITAMINS,THERAPEUTIC TABLET PO SCH (09:30)
[2021-10-10] MEDS: GABAPENTIN 300 MG CAPSULE PO SCH ×3 (09:30→16:45)
[2021-10-10] MEDS: hydrALAZINE HCL 25 MG TABLET PO SCH ×3 (09:30→16:46)
[2021-10-10] MEDS: ASCORBIC ACID 500 MG TABLET PO SCH ×2 (09:30→16:45)
[2021-10-10] MEDS: DOCUSATE SODIUM 100 MG CAPSULE PO SCH (09:30)
[2021-10-10] MEDS: ENOXAPARIN SODIUM 40 MG/0.4 ML DISP.SYRIN SQ SCH ×2 (09:32→21:02)
[2021-10-10] MEDS: INSULIN REGULAR, HUMAN 300 UNIT/3 ML VIAL SQ PRN ×3 (09:33→16:56)
[2021-10-10] MEDS: LIDOCAINE 5% PATCH TD SCH (09:34)
[2021-10-10] MEDS: ARGININE/GLUTAMINE/CALCIUM BMB 1 EACH POWD.PACK PO SCH ×2 (09:34→16:46)
[2021-10-10] MEDS: SODIUM HYPOCHLORITE 0.125% (QUARTER STRENGTH) 473 ML BOTTLE TP SCH (09:35)
[2021-10-10] MEDS ORDERED: POTASSIUM CHLORIDE 20 MEQ TAB.PRT.SR PO ONE (09:45)
[2021-10-10 11:22] VITALS: BP 144/71
[2021-10-10 15:07] VITALS: BP 136/72
[2021-10-10 20:38] VITALS: BP 138/66
[2021-10-10] MEDS: MELATONIN 3 MG TABLET PO SCH (21:00)
[2021-10-10] MEDS: methylPREDNISolone SOD SUCC 40 MG/ML VIAL IV SCH (21:00)
[2021-10-10] MEDS ORDERED: INSULIN GLARGINE,HUM 300 UNITS/3 ML CARTRIDGE SQ SCH (21:00)
[2021-10-10] MEDS: TERAZOSIN 5 MG CAPSULE PO SCH (21:04)
[2021-10-10] MEDS: INSULIN REGULAR, HUMAN 300 UNITS/3 ML VIAL SQ PRN (21:25)
[2021-10-11] MEDS: ALBUTEROL SULFATE 2.5 MG/3 ML NEBU NEB SCH ×4 (02:57→15:24)
[2021-10-11] MEDS: IPRATROPIUM BROMIDE 0.5 MG/2.5 ML NEBU NEB SCH ×4 (02:57→15:24)
[2021-10-11 05:08] VITALS: BP 118/58
[2021-10-11] MEDS: PANTOPRAZOLE SODIUM 40 MG TABLET.DR PO SCH (06:30)
[2021-10-11] MEDS: BLOOD SUGAR DIAGNOSTIC 1 EACH STRIP VI SCH ×2 (06:31→11:53)
[2021-10-11 06:51] LABS: HEMATOCRIT 29.8 % (36.7-47.1); MEAN CORPUSCULAR HEMOGLOBIN 29.5 uug (23.8-33.4); MEAN CORPUSCULAR VOLUME 88.5 fL (73.0-96.2); PLATELET COUNT (AUTO) 172 K/uL (152-348)
[2021-10-11] MEDS: LORAZEPAM 0.5 MG TABLET PO PRN ×2 (07:19→12:51)
[2021-10-11 07:26] LABS: CREATININE 1.5 mg/dL (0.6-1.3); MAGNESIUM 1.9 mg/dL (1.8-2.4); PHOSPHOROUS 2.4 mg/dL (2.5-4.9); POTASSIUM 4.2 mmol/L (3.5-5.1)
[2021-10-11] MEDS: TIMOLOL MALEATE 0.5% OPHT DROP 5 ML BOTTLE EACHEYE SCH (08:30)
[2021-10-11] MEDS: hydrALAZINE HCL 25 MG TABLET PO SCH ×2 (08:31→14:33)
[2021-10-11] MEDS: BRIMONIDINE 0.2% OPHT DROP 10 ML BOTTLE EACHEYE SCH (08:31)
[2021-10-11] MEDS: FLUTICASONE/VILANTEROL 1 EACH BLST.W.DEV IH SCH (08:31)
[2021-10-11] MEDS: FERROUS SULFATE 325 MG TABEC PO SCH (08:32)
[2021-10-11] MEDS: DILTIAZEM HCL CD 120 MG CAP.SR.24H PO SCH (08:32)
[2021-10-11] MEDS: DOCUSATE SODIUM 100 MG CAPSULE PO SCH (08:32)
[2021-10-11] MEDS: ASCORBIC ACID 500 MG TABLET PO SCH (08:33)
[2021-10-11] MEDS: MULTIVITAMINS,THERAPEUTIC TABLET PO SCH (08:33)
[2021-10-11] MEDS: GABAPENTIN 300 MG CAPSULE PO SCH ×2 (08:33→14:31)
[2021-10-11] MEDS: diphenhydrAMINE 25 MG CAP PO PRN (08:34)
[2021-10-11] MEDS: ARGININE/GLUTAMINE/CALCIUM BMB 1 EACH POWD.PACK PO SCH (08:34)
[2021-10-11] MEDS: SODIUM HYPOCHLORITE 0.125% (QUARTER STRENGTH) 473 ML BOTTLE TP SCH (08:35)
[2021-10-11] MEDS: LIDOCAINE 5% PATCH TD SCH (08:35)
[2021-10-11] MEDS: ENOXAPARIN SODIUM 40 MG/0.4 ML DISP.SYRIN SQ SCH (08:46)
[2021-10-11] MEDS: INSULIN REGULAR, HUMAN 300 UNIT/3 ML VIAL SQ PRN ×2 (08:46→12:09)
[2021-10-11] MEDS: methylPREDNISolone SOD SUCC 40 MG/ML VIAL IV SCH (08:49)
[2021-10-11] MEDS ORDERED: FUROSEMIDE 40 MG TABLET PO SCH (09:00)
[2021-10-11 11:12] VITALS: BP 119/74
[2021-10-11 15:14] VITALS: BP 130/70
[2021-10-11] MEDS ORDERED: predniSONE 20 MG TABLET PO SCH (18:00)
== END 2021-10-11 15:40 | DRG 981 ==
LOC: ER 21:29 → TELE3 10-02 02:55 → MEDSURG3 10-02 15:45
PROVIDERS: ADMIT Nurse Practitioner Acute Care; ATTEND Nurse Practitioner Acute Care
PROC: 05H933Z Insertion of Infusion Device into Right Brachial Vein, Percutaneous Approach (ICD-10-PCS; principal; 2021-10-02)
PROC: 5A09357 Assistance with Respiratory Ventilation, Less than 24 Consecutive Hours, Continuous Positive Airway Pressure (ICD-10-PCS; 2021-10-02)
PROC: 5A09457 Assistance with Respiratory Ventilation, 24-96 Consecutive Hours, Continuous Positive Airway Pressure (ICD-10-PCS; 2021-10-04)
PROC: 05H933Z Insertion of Infusion Device into Right Brachial Vein, Percutaneous Approach (ICD-10-PCS; 2021-10-06)
PROC: 0KBN0ZZ Excision of Right Hip Muscle, Open Approach (ICD-10-PCS; 2021-10-07)
DX: J44.1 Chronic obstructive pulmonary disease with (acute) exacerbation (principal); J15.6 Pneumonia due to other Gram-negative bacteria; L89.314 Pressure ulcer of right buttock, stage 4; N17.0 Acute kidney failure with tubular necrosis; L89.154 Pressure ulcer of sacral region, stage 4; I50.33 Acute on chronic diastolic (congestive) heart failure; J96.22 Acute and chronic respiratory failure with hypercapnia; J96.21 Acute and chronic respiratory failure with hypoxia; I13.0 Hypertensive heart and chronic kidney disease with heart failure and stage 1 through stage 4 chronic kidney disease, or unspecified chronic kidney disease; J44.0 Chronic obstructive pulmonary disease with (acute) lower respiratory infection; N18.9 Chronic kidney disease, unspecified; Z66 Do not resuscitate; Z79.899 Other long term (current) drug therapy; Z99.3 Dependence on wheelchair; Z79.51 Long term (current) use of inhaled steroids; N40.0 Benign prostatic hyperplasia without lower urinary tract symptoms; F41.9 Anxiety disorder, unspecified; E66.01 Morbid (severe) obesity due to excess calories; Z68.38 Body mass index [BMI] 38.0-38.9, adult; E78.5 Hyperlipidemia, unspecified; E11.65 Type 2 diabetes mellitus with hyperglycemia; E11.22 Type 2 diabetes mellitus with diabetic chronic kidney disease; F17.210 Nicotine dependence, cigarettes, uncomplicated; D63.8 Anemia in other chronic diseases classified elsewhere; H40.9 Unspecified glaucoma; Z86.14 Personal history of Methicillin resistant Staphylococcus aureus infection; Z20.822 Contact with and (suspected) exposure to COVID-19; Z79.4 Long term (current) use of insulin; M19.90 Unspecified osteoarthritis, unspecified site; R79.1 Abnormal coagulation profile; Z99.81 Dependence on supplemental oxygen; Z86.73 Personal history of transient ischemic attack (TIA), and cerebral infarction without residual deficits
CPT/HCPCS: 36415; 36600; 70030-TC; 71045; 83605; 83735; 84100; 84156; 84300; 85025; 86140; 87040; 87400; 93005; 93307; 94640; 94660; 97161; A4217; A4663; A6209; G0378; J1650; J1815; J1940; J1956; J2060; J2920; J2930; J3475; J3590; J7030; J7512; Q0163

== ENCOUNTER 2021-10-20 11:48 | Inpatient (IN) | payer MEDICARE, OTHER ==
[~2021-10-20] VITALS: Ht 172.7 cm; Wt 120.3 kg
[~2021-10-20 11:48] MED LIST: ACET-2154 PO; ALBU8HFA4 INH; ASCO-375 PO; BACL20TA PO; BISA10SU61 RC; BRIM5DRO2 EACHEYE; CHOL100062 PO; COLL30OI TOP; DEXT15DR6 EACHEYE; DILT-2 PO; DOCU-141 PO; FERR325T28 PO; FLUT1BLS IH; GABA600T12 PO; HYDR-501 PO; HYDR-894 PO; INSU100V28; INSU100V7 SQ; LIDO30AD10 TD; LORA-258 PO; MAGN400O6 PO; MULT-213 PO; OXYC-128 PO; PANT40TA2 PO; PROSTAT SF PO; TERA10CA4 PO; ZINC220T3 PO; ZINC50TA65 PO; ZOLP5TAB8 PO
[2021-10-20] MEDS ORDERED: AZITHROMYCIN IV 500 MG in IV DEXTROSE 5% 250 ML IV ONE (12:15)
[2021-10-20] MEDS ORDERED: IV NORMAL SALINE 1000 ML BAG IV ONE (12:15)
[2021-10-20] MEDS ORDERED: CEFEPIME HCL 1 G in IV DEXTROSE 5% 50 ML IV ONE (12:15)
[2021-10-20] MEDS ORDERED: VANCOMYCIN IV 1,000 MG in IV DEXTROSE 5% 250 ML IV ONE (12:15)
[2021-10-20 12:40] LABS: ABG BASE EXCESS -0.3 mmol/L; ABG HCO3 25.8 mmol/L; ABG PCO2 49.1 mmHg (35.0-45.0); ABG PH 7.338 (7.350-7.450); ABG PO2 73.7 mmHg (75.0-100.0); ABG SITE RIGHT RADIAL; MetHb 0.3 % (0.0-1.5); O2Hb 94.4 % (94.0-97.0); VENT MODE Nasal Cannula
[2021-10-20 13:09] LABS: CREATININE 1.2 mg/dL (0.6-1.3); POTASSIUM 4.1 mmol/L (3.5-5.1)
[2021-10-20 13:26] LABS: BILIRUBIN,DIRECT 0.1 mg/dL (0.0-0.2); BILIRUBIN,TOTAL 0.4 mg/dL (0.2-1.0)
[2021-10-20] MEDS ORDERED: VANCOMYCIN IV 200 ML ONE (14:07)
[2021-10-20] MEDS ORDERED: CEFEPIME HCL 1 G VIAL ONE (14:07)
[2021-10-20] MEDS ORDERED: AZITHROMYCIN 500MG/ D5W 250ML IVPB **ER PYXIS ONLY IV ONE (14:08)
[2021-10-20 14:14] LABS: HEMATOCRIT 29.2 % (36.7-47.1); MEAN CORPUSCULAR HEMOGLOBIN 29.5 uug (23.8-33.4); MEAN CORPUSCULAR VOLUME 89.2 fL (73.0-96.2); PLATELET COUNT (AUTO) 65 K/uL (152-348)
--- NOTE | 2021-10-20 15:00 | NUR ---
Maxepime stopped at 1500.
[2021-10-20] MEDS ORDERED: HYDROMORPHONE 1 MG/1 ML DISP.SYRIN IV ONE (15:15)
[2021-10-20] MEDS ORDERED: ONDANSETRON 4 MG/2 ML VIAL IV ONE (15:15)
[2021-10-20] MEDS ORDERED: ONDANSETRON 4 MG/2 ML VIAL ONE (15:37)
[2021-10-20] MEDS ORDERED: HYDROMORPHONE 1 MG/1 ML DISP.SYRIN ONE (15:38)
[2021-10-20] MEDS ORDERED: DEXTROSE 50% 50 ML DISP.SYRIN IV PRN (17:45)
[2021-10-20] MEDS ORDERED: ONDANSETRON 4 MG/2 ML VIAL IV PRN (17:45)
[2021-10-20] MEDS ORDERED: POLYVINYL ALCOHOL OPHT DROPS 15 ML BOTTLE OP ONE (18:00)
[2021-10-20] MEDS ORDERED: GABAPENTIN 400 MG CAPSULE PO ONE (18:00)
--- NOTE | 2021-10-20 19:08 | NUR ---
RECEIVED REPORT FROM JIM, CRISTELA. PT NOTED TO BE IN BED, VITALS STABLE. A/O X3.
[2021-10-20] MEDS ORDERED: LORAZEPAM 2 MG/1 ML VIAL IV ONE (19:15)
[2021-10-20 19:20] LABS: *BILIRUBIN,URIN NEGATIVE (NEGATIVE); *BLOOD, URINE NEGATIVE (NEGATIVE); *CLARITY,URINE CLEAR (CLEAR); *COLOR,URINE YELLOW (YELLOW); *KETONES,URINE NEGATIVE (NEGATIVE); *UROBILINOGEN,URINE 0.2 E.U./dl (NORMAL); LEUKOCYTE ESTERASE ,URINE NEGATIVE (NEGATIVE); NITRITE, URINE NEGATIVE (NEGATIVE); PH,URINE 5.5 (5.0-8.0); UGLUCOSE 2+ (NEGATIVE)
[2021-10-20] MEDS ORDERED: LORAZEPAM 2 MG/1 ML VIAL ONE (19:25)
[2021-10-20] MEDS ORDERED: POLYVINYL ALCOHOL OPHT DROPS 15 ML BOTTLE ONE (19:29)
--- NOTE | 2021-10-20 20:52 | NUR ---
GAVE REPORT TO CATRACHO LANTIGUA.
--- NOTE | 2021-10-20 21:45 | NUR ---
Received pt from er via [facility]. Under the care of Kyle JUNIOR . Dx: HCAP. Pt in no acute distress. Pt on 2l nasal cannula.USP assessment done. Pt has sacral pressure ulcer. Admission process and care plan initiated. Belonging list done. Safety and comfort provided.Will continue to monitor.
--- NOTE | 2021-10-20 21:50 | NUR ---
Pt. admitted to tele , under care of Dr. meehan Dx: HCAP Belongs List completed
[2021-10-20] MEDS: IPRATROPIUM BROMIDE 0.5 MG/2.5 ML NEBU NEB PRN (22:09)
[2021-10-20] MEDS: ALBUTEROL SULFATE 1.25 MG/3 ML NEBU NEB PRN (22:09)
[2021-10-20] MEDS: BLOOD SUGAR DIAGNOSTIC 1 EACH STRIP VI SCH (22:15)
[2021-10-20] MEDS: INSULIN REGULAR, HUMAN 300 UNIT/3 ML VIAL SQ PRN (22:15)
[2021-10-20] MEDS: INSULIN GLARGINE,HUM 300 UNITS/3 ML CARTRIDGE SQ SCH (22:16)
[2021-10-20 22:19] VITALS: BP 131/75
[2021-10-20 22:49] LABS: EOSINOPHILS % (MANUAL) 2 % (0-8); LYMPHOCYTES % (MANUAL) 15 % (20-40); MONOCYTES % (MANUAL) 5 % (2-10); NEUTROPHILS % (MANUAL) 78 % (42-75)
[2021-10-20] MEDS: TERAZOSIN 5 MG CAPSULE PO SCH (22:54)
[2021-10-20] MEDS: ASCORBIC ACID 500 MG TABLET PO SCH (22:54)
[2021-10-20] MEDS: hydrALAZINE HCL 25 MG TABLET PO SCH (22:55)
[2021-10-20] MEDS: ACETAMINOPHEN 325 MG TABLET PO PRN (22:56)
--- NOTE | 2021-10-20 22:56 | NUR ---
Tylenol 650 mg prn given for pt for generalized pain. Pt tolerated it well. Pt refused his Neurontin medication. Safety and comfort provided. Will continue to monitor.
--- NOTE | 2021-10-20 23:28 | NUR ---
Mother of pt called and asked update regarding his son. Told her Epic number.
[2021-10-21 00:10] VITALS: BP 138/95
[2021-10-21] MEDS ORDERED: Z GUARD REMEDY PASTE 57 GM TUBE TOP PRN (03:00)
[2021-10-21 04:00] VITALS: BP 135/90
[2021-10-21] MEDS: PANTOPRAZOLE SODIUM 40 MG TABLET.DR PO SCH (06:26)
--- NOTE | 2021-10-21 06:38 | NUR ---
Pt slept intermittently, Pt in no acute distress. Iv intact. Safety and comfort provided. Pt stable. All needs are met . Dressing change. Pt doesn't want to be repositioned to his sides. Pt oxygen on 4l. Will endorse to incoming nurse for continuity of care.
[2021-10-21] MEDS: BLOOD SUGAR DIAGNOSTIC 1 EACH STRIP VI SCH ×4 (06:44→20:21)
[2021-10-21 06:51] LABS: HEMATOCRIT 26.2 % (36.7-47.1); MEAN CORPUSCULAR HEMOGLOBIN 29.4 uug (23.8-33.4); MEAN CORPUSCULAR VOLUME 89.1 fL (73.0-96.2); PLATELET COUNT (AUTO) 93 K/uL (152-348)
[2021-10-21 07:04] LABS: CREATININE 1.3 mg/dL (0.6-1.3); MAGNESIUM 1.6 mg/dL (1.8-2.4); PHOSPHOROUS 3.4 mg/dL (2.5-4.9)
[2021-10-21] MEDS: MAGNESIUM SULFATE/D5W 100 ML IV SCH ×2 (08:57→10:00)
[2021-10-21] MEDS: MULTIVITAMINS,THERAPEUTIC TABLET PO SCH (09:00)
[2021-10-21] MEDS: ZINC SULFATE 220 MG CAPSULE PO SCH (09:00)
[2021-10-21] MEDS: FLUTICASONE/VILANTEROL 1 EACH BLST.W.DEV IH SCH (09:00)
[2021-10-21] MEDS: DOCUSATE SODIUM 100 MG CAPSULE PO SCH (09:00)
[2021-10-21] MEDS: hydrALAZINE HCL 25 MG TABLET PO SCH ×3 (09:00→16:30)
[2021-10-21] MEDS: CHOLECALCIFEROL 1,000 UNIT TABLET PO SCH (09:00)
[2021-10-21] MEDS: ASCORBIC ACID 500 MG TABLET PO SCH ×2 (09:00→16:31)
[2021-10-21] MEDS: DILTIAZEM HCL CD 120 MG CAP.SR.24H PO SCH (09:00)
[2021-10-21] MEDS: Z GUARD REMEDY PASTE 57 GM TUBE TOP SCH ×2 (09:11→21:40)
[2021-10-21] MEDS: INSULIN REGULAR, HUMAN 300 UNIT/3 ML VIAL SQ PRN ×4 (09:12→20:28)
[2021-10-21] MEDS: FUROSEMIDE 40 MG/4 ML VIAL IV SCH ×2 (09:17→20:03)
[2021-10-21 09:25] VITALS: BP 105/85
[2021-10-21 09:26] LABS: ABG BASE EXCESS 1.4 mmol/L; ABG HCO3 27.3 mmol/L; ABG PCO2 49.8 mmHg (35.0-45.0); ABG PH 7.357 (7.350-7.450); ABG PO2 97.7 mmHg (75.0-100.0); ABG SITE LEFT RADIAL; COHb 0.3 % (0.5-1.5); MetHb 0.3 % (0.0-1.5); O2Hb 96.8 % (94.0-97.0); VENT MODE Nasal Cannula
--- NOTE | 2021-10-21 10:00 | NUR ---
IV SITE INFILTRATED, ATTEMPTED TO REINSERT BUT FAILED DUE TO POOR VENOUS ACCESS. NEW ORDER FOR MIDLINE INSERTION, ENTERPRISE INFRASTRUCTURE ARCHITECT AWARE AND MIDLINE TEAM INFORMED.
--- NOTE | 2021-10-21 10:25 | NUR ---
WOUND CARE CONSULT: PT REFUSED TO BE TURNED FOR SKIN ASSESSMENT AT THIS TIME. SURGICAL CONSULT CALLED TO DR COFFEY FOR SACRAL STAGE 4 ULCER, PRESENT ON ADMISSION. RECOMMENDATIONS MADE FOR SKIN PROTECTION. DISCUSSED WITH NURSING STAFF. MD IN AGREEMENT WITH PLAN OF CARE. Addendum: 10/21/21 at 1129 by BALDEMAR POLO RN PT SEEN ON THIRD ATTEMPT TO DO SKIN ASSESSMENT. PT NOTED TO BE ANGRY, IRRITABLE AND SARCASTIC AT TIMES. WOUND MEASUREMENTS DONE AND RECORDED IN CHART. RECEIVED WOUND ORDERS FROM SURGICAL TEAM AND DISCUSSED WITH NURSING STAFF.
[2021-10-21 11:00] VITALS: BP 117/72
[2021-10-21] MEDS: OXYCODONE/APAP 5-325 MG TABLET PO PRN ×2 (13:52→20:06)
--- NOTE | 2021-10-21 13:58 | NUR ---
consent obtained for wound debridement.
[2021-10-21] MEDS: SODIUM HYPOCHLORITE 0.125% (QUARTER STRENGTH) 473 ML BOTTLE TP SCH (14:30)
[2021-10-21] MEDS: LORAZEPAM 0.5 MG TABLET PO PRN ×2 (14:30→22:42)
[2021-10-21 16:07] VITALS: BP 135/85
[2021-10-21] MEDS: hydrOXYzine HCL 25 MG TABLET PO PRN ×2 (16:30→22:53)
--- NOTE | 2021-10-21 17:22 | NUR ---
patient requesting new order for melatonin and lidocaine patches, MD aware. New order for lidocaine patch to shoulder and hip q shift and melatonin 6mg po qhs orders noted and carried out.
--- NOTE | 2021-10-21 19:30 | NUR ---
Received patient awake in bed, AOX4. Currently on 2L O2, saturating at 99-100%. On tele monitor showing sinus rhythm with HR of 90bpm. IV on [place] midline, intact and patent. Sacral wound cleansed with normal saline, dakin's solution and covered with Mepilex. Safety precautions and comfort measures initiated. Repositioned patient frequently. Will continue to monitor.
[2021-10-21] MEDS: TERAZOSIN 5 MG CAPSULE PO SCH (20:05)
[2021-10-21] MEDS: MELATONIN 3 MG TABLET PO SCH (20:06)
[2021-10-21] MEDS: INSULIN GLARGINE,HUM 300 UNITS/3 ML CARTRIDGE SQ SCH (20:27)
[2021-10-21] MEDS: ALBUTEROL SULFATE 1.25 MG/3 ML NEBU NEB PRN (21:23)
[2021-10-21] MEDS: IPRATROPIUM BROMIDE 0.5 MG/2.5 ML NEBU NEB PRN (21:23)
[2021-10-21 21:25] VITALS: BP 140/73
[2021-10-21] MEDS ORDERED: LIDOCAINE 5% PATCH TD ONE (22:45)
[2021-10-22 04:50] VITALS: BP 142/83
[2021-10-22] MEDS: LORAZEPAM 0.5 MG TABLET PO PRN ×3 (05:20→22:28)
[2021-10-22] MEDS: OXYCODONE/APAP 5-325 MG TABLET PO PRN ×2 (05:21→23:43)
[2021-10-22] MEDS: BLOOD SUGAR DIAGNOSTIC 1 EACH STRIP VI SCH ×4 (06:37→20:12)
--- NOTE | 2021-10-22 06:38 | NUR ---
Patient slept intermittently through the night, nolasco and demanding. No acute distress noted at this time. Patient denies SOB, chest pain or dizziness. On 2L O2 via NC, saturating at 98%-99% On tele monitor, showing sinus rhythm with HR of 81bpm. IV JORGE ALBERTO midline still intact and patent. All due medications were given as ordered. All needs attended to and met. Safety precautions and comfort measures maintained. Will endorse to day shift.
[2021-10-22] MEDS: PANTOPRAZOLE SODIUM 40 MG TABLET.DR PO SCH (06:47)
[2021-10-22] MEDS: INSULIN REGULAR, HUMAN 300 UNIT/3 ML VIAL SQ PRN ×3 (08:20→17:20)
[2021-10-22] MEDS: ASCORBIC ACID 500 MG TABLET PO SCH ×2 (08:31→17:20)
[2021-10-22] MEDS: MULTIVITAMINS,THERAPEUTIC TABLET PO SCH (08:31)
[2021-10-22] MEDS: ZINC SULFATE 220 MG CAPSULE PO SCH (08:31)
[2021-10-22] MEDS: CHOLECALCIFEROL 1,000 UNIT TABLET PO SCH (08:31)
[2021-10-22] MEDS: FUROSEMIDE 40 MG/4 ML VIAL IV SCH ×3 (08:31→23:43)
[2021-10-22] MEDS: DOCUSATE SODIUM 100 MG CAPSULE PO SCH (08:31)
[2021-10-22] MEDS: DILTIAZEM HCL CD 120 MG CAP.SR.24H PO SCH (08:36)
[2021-10-22] MEDS: hydrALAZINE HCL 25 MG TABLET PO SCH ×3 (08:46→17:21)
[2021-10-22] MEDS: LIDOCAINE 5% PATCH TD SCH (08:46)
[2021-10-22] MEDS: FLUTICASONE/VILANTEROL 1 EACH BLST.W.DEV IH SCH (08:47)
[2021-10-22] MEDS: Z GUARD REMEDY PASTE 57 GM TUBE TOP SCH ×2 (08:47→21:00)
[2021-10-22] MEDS: SODIUM HYPOCHLORITE 0.125% (QUARTER STRENGTH) 473 ML BOTTLE TP SCH (08:47)
[2021-10-22 09:52] LABS: CREATININE 1.4 mg/dL (0.6-1.3)
[2021-10-22 11:34] VITALS: BP 106/82
[2021-10-22] MEDS: IPRATROPIUM BROMIDE 0.5 MG/2.5 ML NEBU NEB PRN ×2 (13:24→20:11)
[2021-10-22] MEDS: ALBUTEROL SULFATE 1.25 MG/3 ML NEBU NEB PRN ×2 (13:24→20:11)
[2021-10-22] MEDS: PROTEIN SUPPLEMENT (PROSTAT) 30 ML LIQUID PO SCH ×2 (14:21→17:21)
[2021-10-22 16:00] VITALS: BP 144/78
[2021-10-22] MEDS: TERAZOSIN 5 MG CAPSULE PO SCH (20:39)
[2021-10-22] MEDS: MELATONIN 3 MG TABLET PO SCH (20:40)
--- NOTE | 2021-10-22 20:46 | NUR ---
received on high back rest ,needs attended. with call light within rreach
[2021-10-22 20:57] VITALS: BP 129/86
[2021-10-22] MEDS: INSULIN GLARGINE,HUM 300 UNITS/3 ML CARTRIDGE SQ SCH (20:59)
--- NOTE | 2021-10-22 21:35 | NUR ---
medication z [id number] not available. cleaned and kept dry.
--- NOTE | 2021-10-22 22:17 | NUR ---
refused lasix dose for later.
[2021-10-23] VITALS: BP 149/81
[2021-10-23] MEDS: IPRATROPIUM BROMIDE 0.5 MG/2.5 ML NEBU NEB PRN ×6 (00:29→23:43)
[2021-10-23] MEDS: ALBUTEROL SULFATE 1.25 MG/3 ML NEBU NEB PRN (00:29)
[2021-10-23] MEDS: hydrOXYzine HCL 25 MG TABLET PO PRN (01:41)
--- NOTE | 2021-10-23 01:44 | NUR ---
lasix dose given.patient heart rate up to 150/min. mother called and informed about the heart rate. vital signs checked. atarax dose given .latest hr 120/min.
[2021-10-23 01:45] VITALS: BP 129/58
[2021-10-23] MEDS ORDERED: FUROSEMIDE 40 MG TABLET PO STA (02:05)
--- NOTE | 2021-10-23 02:09 | NUR ---
Dr Walker informed about the patient heart rate. up to 150/min. with orders and carried out. melatonin dose discontinued
--- NOTE | 2021-10-23 02:14 | NUR ---
hr to 115/min.
[2021-10-23] MEDS: TRAZODONE 100 MG TABLET PO SCH ×2 (02:18→20:56)
--- NOTE | 2021-10-23 02:24 | NUR ---
trazodone and lasix dose given as ordered, midline [id number] and iv cannula to the left forearm inserted and kept hl.
[2021-10-23] MEDS: LEVALBUTEROL HCL 1.25 MG/0.5 ML NEB NEB PRN ×5 (05:03→23:43)
--- NOTE | 2021-10-23 06:36 | NUR ---
asleep. medications not given as patient has just slept and has been anxious and restless,
[2021-10-23 06:52] LABS: HEMATOCRIT 25.4 % (36.7-47.1); MEAN CORPUSCULAR HEMOGLOBIN 29.8 uug (23.8-33.4); MEAN CORPUSCULAR VOLUME 89.1 fL (73.0-96.2); PLATELET COUNT (AUTO) 90 K/uL (152-348)
[2021-10-23] MEDS: PANTOPRAZOLE SODIUM 40 MG TABLET.DR PO SCH (07:07)
[2021-10-23 07:25] LABS: BILIRUBIN,TOTAL 0.4 mg/dL (0.2-1.0); CREATININE 1.3 mg/dL (0.6-1.3); MAGNESIUM 1.5 mg/dL (1.8-2.4); PHOSPHOROUS 2.9 mg/dL (2.5-4.9); POTASSIUM 3.7 mmol/L (3.5-5.1); TOTAL PROTEIN, SERUM 6.2 g/dL (6.4-8.2)
[2021-10-23] MEDS: BLOOD SUGAR DIAGNOSTIC 1 EACH STRIP VI SCH ×4 (07:45→21:04)
[2021-10-23] MEDS: FLUTICASONE/VILANTEROL 1 EACH BLST.W.DEV IH SCH (08:20)
[2021-10-23] MEDS: INSULIN REGULAR, HUMAN 300 UNIT/3 ML VIAL SQ PRN ×4 (08:20→21:25)
[2021-10-23] MEDS: FUROSEMIDE 40 MG/4 ML VIAL IV SCH ×3 (08:38→21:00)
[2021-10-23] MEDS: ASCORBIC ACID 500 MG TABLET PO SCH ×2 (08:39→17:18)
[2021-10-23] MEDS: DOCUSATE SODIUM 100 MG CAPSULE PO SCH (08:39)
[2021-10-23] MEDS: ZINC SULFATE 220 MG CAPSULE PO SCH (08:39)
[2021-10-23] MEDS: MULTIVITAMINS,THERAPEUTIC TABLET PO SCH (08:39)
[2021-10-23] MEDS: CHOLECALCIFEROL 1,000 UNIT TABLET PO SCH (08:39)
[2021-10-23] MEDS: DILTIAZEM HCL CD 120 MG CAP.SR.24H PO SCH (08:40)
[2021-10-23] MEDS: hydrALAZINE HCL 25 MG TABLET PO SCH ×3 (08:40→17:19)
[2021-10-23] MEDS: LIDOCAINE 5% PATCH TD SCH (08:41)
[2021-10-23] MEDS: SODIUM HYPOCHLORITE 0.125% (QUARTER STRENGTH) 473 ML BOTTLE TP SCH (08:42)
[2021-10-23] MEDS: LORAZEPAM 0.5 MG TABLET PO PRN ×2 (09:04→18:19)
[2021-10-23] MEDS: Z GUARD REMEDY PASTE 57 GM TUBE TOP SCH ×2 (09:05→20:54)
[2021-10-23] MEDS: PROTEIN SUPPLEMENT (PROSTAT) 30 ML LIQUID PO SCH ×3 (09:06→17:19)
--- NOTE | 2021-10-23 10:48 | NUR ---
MAGNESSIUM LEVEL IS 1.5 WITH ORDER TO REPLACE WITH 2 GRAMS OF MAGNESSIUM AND NOTED.
[2021-10-23] MEDS: MAGNESIUM SULFATE/D5W 100 ML IV SCH ×2 (10:51→11:54)
[2021-10-23] MEDS ORDERED: ZOLPIDEM 5 MG TABLET PO PRN (11:00)
[2021-10-23 11:38] VITALS: BP 124/65
[2021-10-23] MEDS: GABAPENTIN 100 MG CAPSULE PO SCH ×2 (12:23→17:18)
--- NOTE | 2021-10-23 13:20 | NUR ---
PATIENT C/O GENERALISED PAIN MEDICATED WITH MORPHINE ORDERED MADE COMFORTABLE WILL OBSERVE.
[2021-10-23] MEDS: MORPHINE SULFATE 2 MG/1 ML DISP.SYRIN IV PRN ×3 (13:28→21:32)
[2021-10-23 16:07] VITALS: BP 122/78
--- NOTE | 2021-10-23 17:15 | NUR ---
SCANNED AND GAVE PATIENT MORPHINE 2 MG ORDERED THEN NOTICED THAT THE SCANNING DID NOT REGISTER ON THE EMAR. HAD TO INPUT IT AT THE CORRECT TIME THAT I GAVE IT
--- NOTE | 2021-10-23 18:22 | NUR ---
C/O FEELS ANXIOUS MEDICATED WITH ATIVAN ORDERED MADE COMFORTABLE WILL OBSERVE.
[2021-10-23 20:27] VITALS: BP 135/78
[2021-10-23] MEDS: POLYVINYL ALCOHOL OPHT DROPS 15 ML BOTTLE EACHEYE PRN (20:55)
[2021-10-23] MEDS: TERAZOSIN 5 MG CAPSULE PO SCH (20:56)
[2021-10-23] MEDS ORDERED: Z GUARD REMEDY PASTE 57 GM TUBE TOP SCH (21:00)
[2021-10-23] MEDS: INSULIN GLARGINE,HUM 300 UNITS/3 ML CARTRIDGE SQ SCH (21:24)
--- NOTE | 2021-10-23 21:51 | NUR ---
refused lasix for later
--- NOTE | 2021-10-23 22:44 | NUR ---
still refusing lasix for later,
[2021-10-24] VITALS: BP 140/65
--- NOTE | 2021-10-24 01:35 | NUR ---
lasix still refused by the patient .will inform the physician to possible reschedule to lasix in the day as patient claims it interfer with his sleep at night
--- NOTE | 2021-10-24 02:55 | NUR ---
asking for medication for pain and blanket .blanket provided.but patient is asleep.morphine dose not given as patient is asleep.
[2021-10-24 04:24] VITALS: BP 117/68
[2021-10-24] MEDS: PANTOPRAZOLE SODIUM 40 MG TABLET.DR PO SCH (06:01)
[2021-10-24] MEDS: MORPHINE SULFATE 2 MG/1 ML DISP.SYRIN IV PRN ×2 (06:02→10:15)
[2021-10-24] MEDS: IPRATROPIUM BROMIDE 0.5 MG/2.5 ML NEBU NEB PRN ×2 (06:09→19:25)
[2021-10-24] MEDS: LEVALBUTEROL HCL 1.25 MG/0.5 ML NEB NEB PRN ×2 (06:09→19:26)
[2021-10-24] MEDS: BLOOD SUGAR DIAGNOSTIC 1 EACH STRIP VI SCH ×4 (07:10→20:41)
[2021-10-24 07:17] LABS: CREATININE 1.2 mg/dL (0.6-1.3); MAGNESIUM 1.9 mg/dL (1.8-2.4); POTASSIUM 4.1 mmol/L (3.5-5.1)
[2021-10-24] MEDS: INSULIN REGULAR, HUMAN 300 UNIT/3 ML VIAL SQ PRN ×3 (08:26→16:51)
[2021-10-24] MEDS: MULTIVITAMINS,THERAPEUTIC TABLET PO SCH (08:37)
[2021-10-24] MEDS: DOCUSATE SODIUM 100 MG CAPSULE PO SCH (08:37)
[2021-10-24] MEDS: LIDOCAINE 5% PATCH TD SCH (08:37)
[2021-10-24] MEDS: ZINC SULFATE 220 MG CAPSULE PO SCH (08:37)
[2021-10-24] MEDS: ASCORBIC ACID 500 MG TABLET PO SCH ×2 (08:38→16:55)
[2021-10-24] MEDS: CHOLECALCIFEROL 1,000 UNIT TABLET PO SCH (08:38)
[2021-10-24] MEDS: GABAPENTIN 100 MG CAPSULE PO SCH (08:38)
[2021-10-24] MEDS: FUROSEMIDE 40 MG/4 ML VIAL IV SCH (08:38)
[2021-10-24] MEDS: DILTIAZEM HCL CD 120 MG CAP.SR.24H PO SCH (08:39)
[2021-10-24] MEDS: FLUTICASONE/VILANTEROL 1 EACH BLST.W.DEV IH SCH (08:39)
[2021-10-24] MEDS: hydrALAZINE HCL 25 MG TABLET PO SCH ×3 (08:39→16:56)
[2021-10-24] MEDS: LORAZEPAM 0.5 MG TABLET PO PRN ×2 (08:41→16:55)
--- NOTE | 2021-10-24 09:00 | NUR ---
SLEEPING ON AND OFF STQATED HAS SO MUCH PAIN WITH PAIN MEDICATIONS ORDERED REMAIN ON IVF AND IV ATB ORDERED WITH NO ADVERSE OR ALLERGIC REACTIONS AT THIS TIME LEFT MID FINGER REMAIN WITH REDNESS AND SWELLING CALL OLIGHTS AND PERSONQAL BELONGINGS ARE WITHIN EASY REACH WILL CONTINUE TO OBSERVE.
[2021-10-24] MEDS: PROTEIN SUPPLEMENT (PROSTAT) 30 ML LIQUID PO SCH ×3 (09:38→17:03)
[2021-10-24] MEDS: Z GUARD REMEDY PASTE 57 GM TUBE TOP SCH ×2 (09:39→20:52)
[2021-10-24] MEDS: SODIUM HYPOCHLORITE 0.125% (QUARTER STRENGTH) 473 ML BOTTLE TP SCH (09:39)
[2021-10-24 12:00] VITALS: BP 111/64
[2021-10-24] MEDS: GABAPENTIN 300 MG CAPSULE PO SCH ×2 (13:19→22:36)
[2021-10-24] MEDS: BACLOFEN 20 MG TABLET PO PRN (13:19)
[2021-10-24] MEDS ORDERED: DEXTROSE 50% 50 ML DISP.SYRIN IV PRN ×2 (13:30→13:45)
[2021-10-24] MEDS ORDERED: INSULIN REGULAR, HUMAN 300 UNIT/3 ML VIAL SQ PRN (13:30)
[2021-10-24] MEDS: OXYCODONE/APAP 5-325 MG TABLET PO PRN ×2 (14:17→20:34)
[2021-10-24] MEDS ORDERED: BLOOD SUGAR DIAGNOSTIC 1 EACH STRIP VI SCH (16:30)
[2021-10-24 16:48] VITALS: BP 123/71
--- NOTE | 2021-10-24 18:00 | NUR ---
CONTINUE ON IVPB ATB ORDERED WITH NO ADVERSE OR ALLERGIC REACTIONS AT THIS TIME
--- NOTE | 2021-10-24 18:11 | NUR ---
PATIENT C/O ANXIOUS AND HER IV SITE IS PAINFUL SO XANAX GIVEN PO ORDERED AWAITING FOR THE MIDLINE NURSE TO COME AND INSET MIDLINE Addendum: 10/24/21 at 2532 by SKY LECHUGA RN NOTE IS FOR [id number]
[2021-10-24 20:00] VITALS: BP 103/63
[2021-10-24] MEDS: TERAZOSIN 5 MG CAPSULE PO SCH (20:35)
[2021-10-24] MEDS: TRAZODONE 100 MG TABLET PO SCH (20:36)
[2021-10-24] MEDS: INSULIN REGULAR, HUMAN 300 UNITS/3 ML VIAL SQ PRN (20:46)
[2021-10-24] MEDS: INSULIN GLARGINE,HUM 300 UNITS/3 ML CARTRIDGE SQ SCH (20:47)
[2021-10-24] MEDS: hydrOXYzine HCL 25 MG TABLET PO PRN (20:47)
[2021-10-24 21:17] LABS: THYROID STIMULATING HORMONE 1.701 mIU/mL (0.358-3.740)
[2021-10-24] MEDS: FUROSEMIDE 40 MG TABLET PO SCH (22:37)
[2021-10-24 22:40] VITALS: BP 130/66
[2021-10-25] VITALS: BP 134/76
[2021-10-25] MEDS: OXYCODONE/APAP 5-325 MG TABLET PO PRN ×4 (01:51→20:19)
[2021-10-25] MEDS: LORAZEPAM 0.5 MG TABLET PO PRN ×2 (02:18→15:14)
[2021-10-25 04:27] VITALS: BP 119/78
--- NOTE | 2021-10-25 05:50 | NUR ---
Pt slept intermittently. c/o mild SOB that is relieved by 2L NC. Denies chest pain. IV site intact. Percocet given periodically for pain relief, tolerated well. Safety and comfort provided, call light within reach. Will endorse to day shift.
[2021-10-25] MEDS: PANTOPRAZOLE SODIUM 40 MG TABLET.DR PO SCH (06:46)
[2021-10-25] MEDS: GABAPENTIN 300 MG CAPSULE PO SCH ×3 (06:46→21:09)
[2021-10-25] MEDS: BLOOD SUGAR DIAGNOSTIC 1 EACH STRIP VI SCH ×4 (07:01→20:27)
[2021-10-25] MEDS: PROTEIN SUPPLEMENT (PROSTAT) 30 ML LIQUID PO SCH ×3 (09:00→17:00)
[2021-10-25] MEDS: INSULIN REGULAR, HUMAN 300 UNIT/3 ML VIAL SQ PRN ×3 (10:37→16:23)
[2021-10-25] MEDS: MULTIVITAMINS,THERAPEUTIC TABLET PO SCH (10:37)
[2021-10-25] MEDS: DOCUSATE SODIUM 100 MG CAPSULE PO SCH (10:38)
[2021-10-25] MEDS: DILTIAZEM HCL CD 120 MG CAP.SR.24H PO SCH (10:38)
[2021-10-25] MEDS: FUROSEMIDE 40 MG TABLET PO SCH ×2 (10:39→20:15)
[2021-10-25] MEDS: CHOLECALCIFEROL 1,000 UNIT TABLET PO SCH (10:39)
[2021-10-25] MEDS: hydrALAZINE HCL 25 MG TABLET PO SCH ×3 (10:39→18:17)
[2021-10-25] MEDS: ZINC SULFATE 220 MG CAPSULE PO SCH (10:39)
[2021-10-25] MEDS: LIDOCAINE 5% PATCH TD SCH (10:40)
[2021-10-25] MEDS: ASCORBIC ACID 500 MG TABLET PO SCH ×2 (10:40→18:16)
[2021-10-25] MEDS: Z GUARD REMEDY PASTE 57 GM TUBE TOP SCH ×2 (10:41→21:09)
[2021-10-25] MEDS: SODIUM HYPOCHLORITE 0.125% (QUARTER STRENGTH) 473 ML BOTTLE TP SCH (10:41)
[2021-10-25] MEDS: FLUTICASONE/VILANTEROL 1 EACH BLST.W.DEV IH SCH (10:42)
[2021-10-25 11:16] VITALS: BP 114/64
[2021-10-25 15:49] VITALS: BP 154/94
[2021-10-25] MEDS: BACLOFEN 20 MG TABLET PO PRN (18:18)
--- NOTE | 2021-10-25 18:57 | NUR ---
Pt is a/o x 4, is on 3 L NC saturating 93%. Pt refused to have oxygen be titrated. He is noncompliant with diabetic diet. Pt's wound has been cleaned and repacked. Wound care nurse did debridement today, pt was given pain medication prior and tolerated procedure well. Pt has an intact right upper arm midline 18g. Pt has as needed Percocet for pain, baclofen for muscle spasms. Compliant with all medications, takes pills whole. No signs of acute distress, comfort measures provided, call light within reach. Will endorse to shift superintendent.
[2021-10-25] MEDS: hydrOXYzine HCL 25 MG TABLET PO PRN (19:27)
[2021-10-25] MEDS: TRAZODONE 100 MG TABLET PO SCH (20:15)
[2021-10-25] MEDS: TERAZOSIN 5 MG CAPSULE PO SCH (20:15)
[2021-10-25] MEDS: POLYVINYL ALCOHOL OPHT DROPS 15 ML BOTTLE EACHEYE PRN (20:18)
[2021-10-25 20:20] VITALS: BP 133/55
[2021-10-25] MEDS: INSULIN REGULAR, HUMAN 300 UNITS/3 ML VIAL SQ PRN (20:44)
[2021-10-25] MEDS: INSULIN GLARGINE,HUM 300 UNITS/3 ML CARTRIDGE SQ SCH (21:09)
[2021-10-26 05:10] VITALS: BP 126/70
--- NOTE | 2021-10-26 05:18 | NUR ---
Pt slept intermittently. C/o generalized pain, relieved by Percocet. IV site intact. Pt able to make needs known. No distress noted. Noncompliant with diet. Satting 98% on 2L NC. Will endorse to day shift.
[2021-10-26] MEDS: GABAPENTIN 300 MG CAPSULE PO SCH ×2 (05:59→14:14)
[2021-10-26] MEDS: PANTOPRAZOLE SODIUM 40 MG TABLET.DR PO SCH (06:00)
[2021-10-26] MEDS: OXYCODONE/APAP 5-325 MG TABLET PO PRN ×2 (06:00→14:13)
[2021-10-26] MEDS: BLOOD SUGAR DIAGNOSTIC 1 EACH STRIP VI SCH ×2 (06:31→11:20)
[2021-10-26] MEDS: INSULIN REGULAR, HUMAN 300 UNIT/3 ML VIAL SQ PRN ×2 (08:32→11:24)
[2021-10-26] MEDS: ZINC SULFATE 220 MG CAPSULE PO SCH (08:37)
[2021-10-26] MEDS: ASCORBIC ACID 500 MG TABLET PO SCH (08:37)
[2021-10-26] MEDS: MULTIVITAMINS,THERAPEUTIC TABLET PO SCH (08:37)
[2021-10-26] MEDS: CHOLECALCIFEROL 1,000 UNIT TABLET PO SCH (08:37)
[2021-10-26] MEDS: DOCUSATE SODIUM 100 MG CAPSULE PO SCH (08:37)
[2021-10-26] MEDS: FUROSEMIDE 40 MG TABLET PO SCH (08:47)
[2021-10-26] MEDS: FLUTICASONE/VILANTEROL 1 EACH BLST.W.DEV IH SCH (08:47)
[2021-10-26] MEDS: DILTIAZEM HCL CD 120 MG CAP.SR.24H PO SCH (08:48)
[2021-10-26] MEDS: hydrALAZINE HCL 25 MG TABLET PO SCH ×2 (08:49→14:15)
[2021-10-26] MEDS: LIDOCAINE 5% PATCH TD SCH (08:50)
[2021-10-26] MEDS: PROTEIN SUPPLEMENT (PROSTAT) 30 ML LIQUID PO SCH ×2 (08:50→13:00)
[2021-10-26] MEDS: SODIUM HYPOCHLORITE 0.125% (QUARTER STRENGTH) 473 ML BOTTLE TP SCH (08:51)
[2021-10-26] MEDS: Z GUARD REMEDY PASTE 57 GM TUBE TOP SCH (08:51)
[2021-10-26] MEDS: BACLOFEN 20 MG TABLET PO PRN (09:22)
[2021-10-26] MEDS: LORAZEPAM 0.5 MG TABLET PO PRN (09:22)
[2021-10-26] MEDS: ACETAMINOPHEN 325 MG TABLET PO PRN (09:22)
[2021-10-26] MEDS: LEVALBUTEROL HCL 1.25 MG/0.5 ML NEB NEB PRN (09:31)
[2021-10-26] MEDS: IPRATROPIUM BROMIDE 0.5 MG/2.5 ML NEBU NEB PRN (09:31)
[2021-10-26 12:00] VITALS: BP 114/70
[2021-10-26] MEDS ORDERED: GABA300C PO (14:32)
[2021-10-26] MEDS ORDERED: FURO40TA5 PO (14:32)
[2021-10-26] MEDS ORDERED: SODI473S8 TP (14:32)
[2021-10-26 16:00] VITALS: BP 123/60
--- NOTE | 2021-10-26 16:46 | NUR ---
Patient D/C to [facility]. Left forearm 20g, right upper arm midline removed. Tips intact. No signs of bleeding noted. No signs of acute distress noted. D/C instructions given to patient, [id number]
--- NOTE | 2021-10-26 16:48 | NUR ---
verbalized understanding. Belongings gathered and sent with patient.
== END 2021-10-26 16:45 | DRG 981 ==
LOC: ER 11:48 → TELE3 21:08 → MEDSURG3 10-24 20:12
PROVIDERS: ADMIT Internal Medicine; ATTEND Internal Medicine
PROC: 05HD33Z Insertion of Infusion Device into Right Cephalic Vein, Percutaneous Approach (ICD-10-PCS; principal; 2021-10-21)
PROC: 0KBP0ZZ Excision of Left Hip Muscle, Open Approach (ICD-10-PCS; 2021-10-25)
PROC: 0KBN0ZZ Excision of Right Hip Muscle, Open Approach (ICD-10-PCS; 2021-10-25)
PROC: 05HD33Z Insertion of Infusion Device into Right Cephalic Vein, Percutaneous Approach (ICD-10-PCS; 2021-10-25)
DX: I13.0 Hypertensive heart and chronic kidney disease with heart failure and stage 1 through stage 4 chronic kidney disease, or unspecified chronic kidney disease (principal); J18.9 Pneumonia, unspecified organism; J96.21 Acute and chronic respiratory failure with hypoxia; I50.33 Acute on chronic diastolic (congestive) heart failure; G93.41 Metabolic encephalopathy; L89.314 Pressure ulcer of right buttock, stage 4; J96.22 Acute and chronic respiratory failure with hypercapnia; N17.0 Acute kidney failure with tubular necrosis; J44.1 Chronic obstructive pulmonary disease with (acute) exacerbation; D68.59 Other primary thrombophilia; Z68.41 Body mass index [BMI] 40.0-44.9, adult; I24.9 Acute ischemic heart disease, unspecified; E83.42 Hypomagnesemia; D69.6 Thrombocytopenia, unspecified; D64.9 Anemia, unspecified; E66.01 Morbid (severe) obesity due to excess calories; N18.2 Chronic kidney disease, stage 2 (mild); N40.0 Benign prostatic hyperplasia without lower urinary tract symptoms; E11.22 Type 2 diabetes mellitus with diabetic chronic kidney disease; E11.65 Type 2 diabetes mellitus with hyperglycemia; G89.4 Chronic pain syndrome; H40.9 Unspecified glaucoma; G62.9 Polyneuropathy, unspecified; E78.5 Hyperlipidemia, unspecified; G47.00 Insomnia, unspecified; I25.10 Atherosclerotic heart disease of native coronary artery without angina pectoris; Z20.822 Contact with and (suspected) exposure to COVID-19; Z79.4 Long term (current) use of insulin; Z79.899 Other long term (current) drug therapy; Z95.5 Presence of coronary angioplasty implant and graft; Z99.81 Dependence on supplemental oxygen
CPT/HCPCS: 36415; 36600; 70030-TC; 71045; 83550; 83605; 83735; 84100; 84443; 85025; 85730; 87040; 87086; 93005; 94640; 94664; 97161; A4217; A4663; A6209; G0378; J0456; J0692; J1170; J1815; J1940; J2060; J2270; J2405; J3370; J3475; J3490; J3590; J7030; J7040